=== PATIENT | female | born 1990 | race African-American/Black ===

== ENCOUNTER 2017-05-22 11:44 | Emergency (ER) | payer SELFPAY ==
[~2017-05-22] VITALS: Ht 165.1 cm; Wt 86.0 kg
[2017-05-22 11:47] VITALS: BP 113/59; PULSE 80; RESP 16; TEMP 98.4; O2SAT 100
--- NOTE | 2017-05-22 12:09 | RADRPT ---
EXAM DATE/TIME: 05/22/2017 12:05 [place] COMPARISON: No previous studies available for comparison. INDICATIONS : Hemopytosis. MEDICAL HISTORY : None. SURGICAL HISTORY : None. ENCOUNTER: Initial ACUITY: 1 week PAIN SCORE: 0/10 LOCATION: Bilateral chest FINDINGS: PA and lateral views of the chest demonstrate the lungs to be symmetrically aerated without evidence of mass, infiltrate or effusion. The cardiomediastinal contours are unremarkable. Osseous structure s are intact. CONCLUSION: No acute disease. Akin Cantu MD FACR on May 22, 2017 at 12:07 Board Certified Radiologist. This report was verified electronically.
--- NOTE | 2017-05-22 13:58 | PD ---
HPI Chief Complaint: Cold / Flu Symptoms Time Seen by Provider: 13:40 Travel History International Travel<30 days: No Contact w/Intl Traveler<30days: No Traveled to known affect area: No History of Present Illness HPI 26-year-old female presents emergency department complaining of a cough, sore throat, and congestion for approximately 1 week. Patient states that she was concerned and came in today because she developed a bloody nose yesterday and had a productive cough with a pink tinge x1 this morning. She denies fever, chills, chest pain, shortness of breath, abdominal pain, back pain. She has not had any sick contact. Says she does not have a previous history of allergies or sick contacts. Patient denies medical issues and medication use. Says she has used [id number] medications without significant relief. PFSH Past Medical History Medical History: Denies Significant Hx Diminished Hearing: No Immunizations Current: Yes ?: Not LMP: MARCH 2017, IRREGULAR Past Surgical History Surgical History: No Previous Surgery Social History Alcohol Use: No Tobacco Use: No Substance Use: No Allergies-Medications (Allergen,Severity, Reaction): Coded Allergies: No Known Allergies (Unverified , 05/22/17) Reported Meds & Prescriptions Reported Meds & Active Scripts Active Prednisone 10 Mg Tab 10 Mg PO DAILY 5 Days Review of Systems Except as stated in HPI: all other systems reviewed are Neg Physical Exam Narrative GENERAL: Well-nourished, well-developed patient. SKIN: Focused skin assessment warm/dry. HEAD: Normocephalic. EYES: No scleral icterus. No injection or drainage. NECK: Supple, trachea midline. No JVD or lymphadenopathy. Posterior pharynx mildly erythematous without exudate CARDIOVASCULAR: Regular rate and rhythm without murmurs, gallops, or rubs. RESPIRATORY: Breath sounds equal bilaterally. No accessory muscle use. GASTROINTESTINAL: Abdomen soft, non-tender, nondistended. No CVA tenderness MUSCULOSKELETAL: No cyanosis, or edema. BACK: Nontender without obvious deformity. No CVA tenderness. Data Data Last Documented VS Vital Signs Date Time Temp Pulse Resp B/P (MAP) Pulse Ox O2 Delivery O2 Flow Rate FiO2 05/22/17 11:47 98.4 80 16 113/59 (77) 100 Orders Orders Chest, Pa & Lat (05/22/17 ) Ed Urine Pregnancytest Poc (05/22/17 11:49) Prednisone (Deltasone) (05/22/17 14:00) Ed Discharge Order (05/22/17 15:05) MDM Medical Decision Making Medical Screen Exam Complete: Yes Emergency Medical Condition: Yes Differential Diagnosis Allergic rhinitis, allergies, upper respiratory infection, pneumonia Narrative Course 26-year-old female presents emergency department complaining of a cough, sore throat, and congestion for approximately 1 week. Patient states that she was concerned and came in today because she developed a bloody nose yesterday and had a productive cough with a pink tinge x1 this morning. She denies fever, chills, chest pain, shortness of breath, abdominal pain, back pain. She has not had any sick contact. Says she does not have a previous history of allergies or sick contacts. Patient denies medical issues and medication use. Says she has used [id number] medications, and honey without significant relief. Vital signs stable. Physical exam findings remarkable for posterior pharynx erythematous with cobblestoning, scant clear rhinorrhea Strep culture initially ordered however, after further examination it does not appear patient has strep pharyngitis. She has not had contact with anybody with strep pharyngitis. Last Impressions Chest X-Ray 05/22/17 0000 Signed Impressions: Service Date/Time: Monday, May 22, 2017 12:05 - CONCLUSION: No acute disease. Akin Cantu MD FACR I explained to the patient that the likely source of her pink tinged sputum was from her bloody nose that she obtained yesterday. She denies shortness of breath, chest pain, back pain. Her vitals are stable. Prednisone 20 mg administered for her cough and likely allergy symptoms. She will be discharged with prednisone 10 mg for 5 days. Advised the risk versus benefits of this medication. Advised that she should follow-up with her primary care physician within 2-3 days. Advised to return to the emergency department for worsening or persistent symptoms. Diagnosis Primary Impression: Allergic rhinitis Qualified Codes: J30.89 - Other allergic rhinitis Referrals: Primary Care Physician Additional Instructions: Your chest xray was clear today. Take all medications as prescribed. Ensure adequate fluid intake and proper nutrition. Follow up with your primary care physician within 2-3 days. If your cough persists or worsens, return to the emergency department. Scripts Prednisone (Prednisone) 10 Mg Tab 10 MG PO DAILY for 5 Days, #5 TAB 0 Refills Prov: Karli Ibarra 05/22/17 Disposition: 01 DISCHARGE HOME Condition: Stable Karli Ibarra May 22, 2017 13:58
[2017-05-22] MEDS ORDERED: predniSONE 20 MG TAB PO ONE (14:00)
[2017-05-22] MEDS ORDERED: PRED10 PO (15:04)
== END 2017-05-22 15:41 | disposition home or self-care (01) ==
LOC: NEPA 11:44
DX: J30.89 Other allergic rhinitis (principal)
CPT/HCPCS: 71046; 84703; 99284; J7512